=== PATIENT | male | born 1940 | race Caucasian/White ===

== ENCOUNTER 2019-07-01 16:59 | Inpatient (IN) | payer MEDICAID, MEDICARE, OTHER ==
[~2019-07-01] VITALS: Ht 182.9 cm; Wt 79.8 kg
[~2019-07-01 16:59] MED LIST: AMLO5TAB88; HYDR-459; SIMV20TA2; VITS1TAB2
[2019-07-01] MEDS ORDERED: SODIUM CHLORIDE 0.9% 1,000 ML IV ONE (17:38)
[2019-07-01 18:27] LABS: BASOPHILS % 0.5 % (0.0-2.0); EOSINOPHILS % 4.2 % (0.0-5.0); HEMATOCRIT. 45.2 % (42.0-52.0); LYMPHOCYTES % 13.1 % (20.0-50.0); MEAN CORPUSCULAR HEMOGLOBIN 30.2 pg (28.0-32.0); MEAN CORPUSCULAR VOLUME 90.8 fL (80.0-94.0); MEAN PLATELET VOLUME 7.9 fl (7.4-10.4); MONOCYTES % 8.6 % (2.0-8.0); NEUTROPHILS % 73.6 % (40.0-76.0); PLATELET 184 x1000/uL (130-400); RED BLOOD CELL COUNT 4.98 mill/uL (4.7-6.1); RED CELL DISTRIBUTION WIDTH 13.5 % (11.6-14.6)
[2019-07-01 18:29] LABS: CHLORIDE 110 mEq/L (98-107)
[2019-07-02 08:00] VITALS: BP 139/75
[2019-07-02 11:26] VITALS: BP 139/79
[2019-07-02] MEDS ORDERED: INFLUENZA VIRUS VACCINE(AFLURIA) 0.5ML SYR IM ONE (11:30)
[2019-07-02 12:00] VITALS: BP 111/60
[2019-07-02 16:00] VITALS: BP 117/52
[2019-07-02 20:00] VITALS: BP 104/64
[2019-07-03] VITALS: BP 106/71
[2019-07-03 04:00] VITALS: BP 120/74
[2019-07-03] MEDS ORDERED: IPRATROPIUM BROMIDE (0.02%) 0.5MG/2.5ML NEB HHN PRN (10:45)
[2019-07-03] MEDS ORDERED: HYDROCODONE/ACETAMINOPHEN 5/325MG TABLET PO PRN (10:45)
[2019-07-03] MEDS: ENOXAPARIN 40MG/0.4ML SYR SUBCUT SCH (11:44)
[2019-07-03 16:00] VITALS: BP 110/46
[2019-07-03 20:00] VITALS: BP_SYST 115; BP_SYST 119; BP_SYST 130; BP_DIAS 69; BP_DIAS 73; BP_DIAS 75
[2019-07-03] MEDS ORDERED: BISACODYL 10MG SUPP PR PRN (20:15)
[2019-07-03] MEDS ORDERED: ONDANSETRON HCL 4MG/2ML INJ IV PRN (20:15)
[2019-07-03] MEDS ORDERED: NA PHOS,M-B/NA PHOS,DI-BA ENEMA 118ML PR PRN (20:15)
[2019-07-03] MEDS ORDERED: BISACODYL 10MG SUPP PR SCH (20:15)
[2019-07-03] MEDS ORDERED: NA PHOS,M-B/NA PHOS,DI-BA ENEMA 118ML PR SCH (20:15)
[2019-07-04] VITALS (7 sets, daily range): BP systolic 102–150; BP diastolic 47–72
[2019-07-04 06:36] LABS: BASOPHILS % 0.5 % (0.0-2.0); EOSINOPHILS % 1.9 % (0.0-5.0); HEMATOCRIT. 42.3 % (42.0-52.0); HEMOGLOBIN. 14.5 g/dL (14.0-18.0); LYMPHOCYTES % 14.7 % (20.0-50.0); MEAN CORPUSCULAR VOLUME 90.3 fL (80.0-94.0); MEAN PLATELET VOLUME 7.9 fl (7.4-10.4); MONOCYTES % 11.3 % (2.0-8.0); NEUTROPHILS % 71.6 % (40.0-76.0); PLATELET 164 x1000/uL (130-400); RED BLOOD CELL COUNT 4.69 mill/uL (4.7-6.1); RED CELL DISTRIBUTION WIDTH 13.3 % (11.6-14.6)
[2019-07-04 06:43] LABS: CHLORIDE 108 mEq/L (98-107)
[2019-07-04] MEDS: ENOXAPARIN 40MG/0.4ML SYR SUBCUT SCH (11:06)
== END 2019-07-04 20:15 | disposition home or self-care (01) | DRG 74 ==
LOC: ER 16:59 → EDBEDREQ 18:31 → 5WST 19:08 → EDBEDREQ 19:11 → CANRESERV 07-02 08:54 → ENRESERV 07-02 08:54
PROVIDERS: ADMIT Internal Medicine; ATTEND Internal Medicine
DX: G90.8 Other disorders of autonomic nervous system (principal); G89.29 Other chronic pain; I10 Essential (primary) hypertension; R53.1 Weakness; R25.2 Cramp and spasm; M54.9 Dorsalgia, unspecified; Z91.09 Other allergy status, other than to drugs and biological substances
CPT/HCPCS: 36415; 71045; 72148; 80048; 80053; 83880; 84484; 85025; 87804; 90686; 93005; 93880; 93923; 97116; 97162; 99285; J1650; J2405; J7030